=== PATIENT | male | born 1965 | race Caucasian/White ===

== ENCOUNTER → 2017-08-11 | Outpatient (CLI) | payer OTHER ==
--- NOTE | 2017-08-12 07:10 | EEG ---
DATE OF EE08/11/2017 REFERRING PHYSICIAN: Eda Deleon MD DIAGNOSIS: History of herpes encephalitis and seizure, rule out epileptic potential. EEG NUMBER: [id number] HISTORY: The patient is a 51-year-old man with a history of herpes encephalitis in 2016 and had a seizure at that time. This EEG was done to rule out epileptic potential. He is currently taking Trileptal and Protonix. TECHNICAL DESCRIPTION: This digital EEG was recorded by 21 scalp, ear and 2 EKG electrodes and was reviewed in bipolar and referential montages following reformatting 10-20 international electrode placement system. INTERPRETATION: The patient was noted to be in awake and drowsy states during this EEG. Resting awake background rhythm consisted of well-formed posterior dominant rhythm with anterior/posterior gradient comprising of 11 Hz of alpha activity measuring 15-50 microvolts in amplitude, which was symmetric and reactive to eye opening. Attenuation of posterior dominant rhythm was seen during transition into drowsiness. Stage 1 sleep was reviewed and was symmetric bilaterally. Hyperventilation remained unremarkable. Photic stimulation at 3- 30 Hz elicited symmetric photic driving. EKG revealed normal sinus rhythm. No focal, lateralizing or epileptiform abnormalities were seen. No clinical or electrographic seizures were recorded. CONCLUSION: This EEG in awake, drowsy states, stage 1 sleep is within normal limits. [facility]
== END ==
LOC: M SLEEP 08:14
PROVIDERS: ATTEND Psychiatry & Neurology Neurology
DX: R56.9 Unspecified convulsions (principal)

== ENCOUNTER → 2017-08-11 | Outpatient (CLI) | payer OTHER ==
[~2017-08-11] MED LIST: PROHANCE 279.3MG/ML 15ML VIAL (A9576) As Ordered ONE; PROHANCE 279.3MG/ML 5ML VIAL (A9576) As Ordered ONE
--- NOTE | 2017-08-11 13:08 | REP ---
MRI BRAIN WITHOUT AND WITH CONTRAST: HISTORY: Herpes encephalitis. CONTRAST: ProHance 20 mL. Increased signal intensity on T2-weighted images is present in the anterior left temporal lobe. There is dilatation of the overlying cortical sulci and temporal horn of the left lateral ventricle. This represents gliosis and encephalomalacia. There is no intraparenchymal hemorrhage, mass or midline shift. There is no abnormal enhancement. 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 There is no hydrocephalus or extracerebral collection. The sinuses are clear. IMPRESSION: There is gliosis and encephalomalacia in the anterior left temporal lobe. Signed by Vahe Fong MD 08/11/2017 01:33 P
== END ==
LOC: M RAD 10:12
PROVIDERS: ATTEND Psychiatry & Neurology Neurology
DX: B00.9 Herpesviral infection, unspecified (principal)

== ENCOUNTER 2019-10-13 07:59 | Day surgery (SDC) | payer OTHER ==
[~2019-10-13] VITALS: Ht 180.3 cm; Wt 116.3 kg
[~2019-10-13 07:59] MED LIST changes: +OXCA600T8 PO; +PANT40TA3 PO; -PROHANCE 279.3MG/ML 15ML VIAL (A9576) As Ordered ONE; -PROHANCE 279.3MG/ML 5ML VIAL (A9576) As Ordered ONE
[2019-10-13] MEDS ORDERED: NS 1,000 ML IV ONE (09:00)
[2019-10-13] MEDS ORDERED: LIDOCAINE 2% INJ 100 MG/5 ML SDV (FOR ANES.) As Ordered ONE (09:49)
[2019-10-13] MEDS ORDERED: propofoL 200 MG/20 ML VIAL As Ordered ONE (09:49)
--- NOTE | 2019-10-13 09:55 | ROOR ---
Patient Name: Denny Mccrary Procedure Date: 10/13/2019 9:33 AM Date of : 1965 Age: 53 Room: [facility] Gender: Male Note Status: Finalized Procedure: Colonoscopy Indications: Screening in patient at increased risk: Colorectal cancer in father before age 60 Providers: Lazaro THOMAS MD Referring MD: NOMAN CORCORAN MD Requesting Provider: Medicines: Monitored Anesthesia Care Complications: No immediate complications. Procedure: Pre-Anesthesia Assessment: - The heart rate, respiratory rate, oxygen saturations, blood pressure, adequacy of pulmonary ventilation, and response to care were monitored throughout the procedure. The Colonoscope was introduced through the anus and advanced to the terminal ileum, with identification of the appendiceal orifice and IC valve. The colonoscopy was performed without difficulty. The patient tolerated the procedure well. The quality of the bowel preparation was good. Findings: The perianal and digital rectal examinations were normal. A diminutive polyp was found in the distal sigmoid colon. The polyp was sessile. The polyp was removed with a cold snare. Resection and retrieval were complete. A few medium-mouthed diverticula were found in the sigmoid colon. Small Internal Hemorrhoids. The exam was otherwise without abnormality on direct and retroflexion views. Impression: - One diminutive polyp in the distal sigmoid colon, removed with a cold snare. Resected and retrieved. - Minimal diverticulosis in the sigmoid colon. - Small Internal Hemorrhoids. - The examination was otherwise normal on direct and retroflexion views. Recommendation: - Use fiber, for example Citrucel, Fibercon, Konsyl or Metamucil. - Telephone endoscopist for pathology results in 2 weeks. - Repeat colonoscopy in 3 years. Lazaro Thomas MD Lazaro THOMAS MD 10/13/2019 9:55:11 AM Electronically signed by Lazaro THOMAS MD Number of Addenda: 0 Note Initiated On: 10/13/2019 9:33 AM Estimated Blood Loss: Estimated blood loss: none.
[2019-10-13 10:18] VITALS: BP 129/62
== END 2019-10-13 10:22 | disposition home or self-care (01) ==
LOC: M OPP 07:59
PROVIDERS: ATTEND Internal Medicine Gastroenterology
DX: Z12.11 Encounter for screening for malignant neoplasm of colon (principal); Z80.0 Family history of malignant neoplasm of digestive organs; K63.5 Polyp of colon; K57.30 Diverticulosis of large intestine without perforation or abscess without bleeding; K21.9 Gastro-esophageal reflux disease without esophagitis; Z79.899 Other long term (current) drug therapy; Z87.891 Personal history of nicotine dependence

== ENCOUNTER → 2020-07-25 | Outpatient (CLI) | payer OTHER ==
[~2020-07-25] MED LIST changes: +PANT40TA29 PO; -PANT40TA3 PO
--- NOTE | 2020-07-25 15:31 | REP ---
INDICATION: EPIGASTRIC PAIN COMPARISON: None. TECHNIQUE: Real time leon scale ultrasound examination using curved array transducer. FINDINGS: Liver is normal in contour, size, and without focal hepatic lesions identified. Mild hepatosteatosis cannot be excluded. Pancreas is incompletely evaluated due to interposed bowel gas. The gallbladder demonstrate multiple layering gallstones without wall thickening, or pericholecystic fluid. No biliary ductal dilatation is appreciated and the common bile duct measures 4.7 mm diameter. Right kidney is normal in reniform shape without hydronephrosis and measures 12.2 x 6.0 x 5.3 cm. No ascites in the visualized right upper quadrant. IMPRESSION: 1. Cholelithiasis. 2. Mild hepatosteatosis cannot be excluded. No focal hepatic lesion identified. <Electronically signed by Chase Hunt > 07/25/20 [id number]
== END ==
LOC: M RAD 07:07
PROVIDERS: ATTEND Surgery
DX: R10.13 Epigastric pain (principal); K80.20 Calculus of gallbladder without cholecystitis without obstruction

== ENCOUNTER → 2020-08-27 | Outpatient (CLI) | payer OTHER ==
--- NOTE | 2020-08-27 10:04 | REP ---
INDICATION: LUNG SCREENING COMPARISON: None. TECHNIQUE: Axial noncontrast images from the thoracic inlet to the upper abdomen using low-dose lung screening technique (LDCT). FINDINGS: The bilateral lung vee are relatively well aerated and clear. No suspicious nodule or mass lesion is appreciated. No consolidation, effusion, or pneumothorax. Tracheobronchial tree is patent. Limited evaluation of the mediastinum is grossly unremarkable although atherosclerotic changes to the coronary arteries cannot be excluded. IMPRESSION: Lung-RADS category 1. No suspicious nodule or mass lesion. Management recommendations include annual low-dose CT surveillance. <Electronically signed by Chase Hunt > 08/27/20 [id number]
== END ==
LOC: M RAD 08:53
PROVIDERS: ATTEND Internal Medicine Hematology & Oncology
DX: Z12.2 Encounter for screening for malignant neoplasm of respiratory organs (principal)

== ENCOUNTER → 2020-10-04 | Outpatient (CLI) | payer OTHER ==
[~2020-10-04] MED LIST changes: +HYDR-4571 PO
== END ==
LOC: M LABSMTC 09:44
PROVIDERS: ATTEND Anesthesiology
DX: Z20.828 Contact with and (suspected) exposure to other viral communicable diseases (principal)

== ENCOUNTER 2020-10-09 06:13 | Day surgery (SDC) | payer OTHER ==
[~2020-10-09] VITALS: Ht 180.3 cm; Wt 118.3 kg
[~2020-10-09 06:13] MED LIST changes: -HYDR-4571 PO
--- OUTSIDE RECORDS SUMMARY | 2020-10-09 06:18 | CCD ---
Author Author [facility] Organization [facility] Address Unknown Phone Unavailable Care Team Providers Care Treatment Manager Name Role Phone Danelle Lynn MD Unavailable Unavailable Shane, Danelle Tineo MD Unavailable Unavailable Shane, Danelle Tineo MD Unavailable Unavailable Shane, Danelle Tineo MD Unavailable Unavailable Shane, Danelle Tineo MD Unavailable Unavailable Shane, Danelle Tineo MD Unavailable Unavailable Shane, Danelle Tineo MD Unavailable Unavailable Shane, Danelle Tineo MD Unavailable Unavailable Shane, Danelle Tineo MD Unavailable Unavailable Shane, Danelle Tineo MD Unavailable Unavailable Shane, Danelle Tineo MD Unavailable Unavailable Shane, Danelle Tineo MD Unavailable Unavailable Shane, Danelle Tineo MD Unavailable Unavailable Shane, Danelle Tineo MD Unavailable Unavailable Shane, Danelle Tineo MD Unavailable Unavailable Shane, Danelle Tineo MD Unavailable Unavailable Shane, Danelle Tineo MD Unavailable Unavailable Shane, Danelle Tineo MD Unavailable Unavailable Shane, Danelle Tineo MD Unavailable Unavailable Shane, Danelle Tineo MD Unavailable Unavailable Shane, Danelle Tineo MD Unavailable Unavailable Shane, Danelle Tineo MD Unavailable Unavailable Shane, Danelle Tineo MD Unavailable Unavailable Shane, Danelle Tineo MD Unavailable Unavailable Shane, Danelle Tineo MD Unavailable Unavailable Shane, Danelle Tineo MD Unavailable Unavailable Shane, Danelle Tineo MD Unavailable Unavailable Shane, Danelle Tineo MD Unavailable Unavailable Shane, Danelle Tineo MD Unavailable Unavailable Shane, Danelle Tineo MD Unavailable Unavailable Shane, Danelle Tineo MD Unavailable Unavailable Shane, Danelle Tineo MD Unavailable Unavailable Shane, Danelle Tineo MD Unavailable Unavailable Shane, Danelle Tineo MD Unavailable Unavailable Shane, Danelle Tineo MD Unavailable Unavailable Shane, Danelle Tineo MD Unavailable Unavailable Shane, Danelle Tineo MD Unavailable Unavailable Shane, Danelle Tineo MD Unavailable Unavailable Shane, Danelle Tineo MD Unavailable Unavailable Shane, Danelle Tnieo MD Unavailable Unavailable Shane, Danelle Tineo MD Unavailable Unavailable Shane, Danelle Tineo MD Unavailable Unavailable Shane, Danelle Tineo MD Unavailable Unavailable Shane, Danelle Tineo MD Unavailable Unavailable Shane, Danelle Tineo MD Unavailable Unavailable Shane, Danelle Tineo MD Unavailable Unavailable Shane, Danelle Tineo MD Unavailable Unavailable Shane, Danelle Tineo MD Unavailable Unavailable Shane, Danelle Tineo MD Unavailable Unavailable Shane, Danelle Tineo MD Unavailable Unavailable Shane, Danelle Tineo MD Unavailable Unavailable Shane, Danelle Tineo MD Unavailable Unavailable Shane, Danelle Tineo MD Unavailable Unavailable Shane, Danelle Tineo MD Unavailable Unavailable Shane, Danelle Tineo MD Unavailable Unavailable Shane, Danelle Tineo MD Unavailable Unavailable Shane, Danelle Tineo MD Unavailable Unavailable Shane, Danelle Tineo MD Unavailable Unavailable Shane, Danelle Tineo MD Unavailable Unavailable Shane, Danelle Tineo MD Unavailable Unavailable Shane, Danelle Tineo MD Unavailable Unavailable Shane, Danelle Tineo MD Unavailable Unavailable Shane, Danelle Tineo MD Unavailable Unavailable Shane, Danelle Tineo MD Unavailable Unavailable Shane, Danelle Tineo MD Unavailable Unavailable Shane, Danelle Tineo MD Unavailable Unavailable Shane, Danelle Tineo MD Unavailable Unavailable Shane, Danelle Tineo MD Unavailable Unavailable Shane, Danelle Tineo MD Unavailable Unavailable Shane, Danelle Tineo MD Unavailable Unavailable Shane, Danelle Tineo MD Unavailable Unavailable Shane, Danelle Tineo MD Unavailable Unavailable Shane, Danelle Tineo MD Unavailable Unavailable Shane, Danelle Tineo MD Unavailable Unavailable Shane, Danelle Tineo MD Unavailable Unavailable Shane, Danelle Tineo MD Unavailable Unavailable Shane, Danelle Tineo MD Unavailable Unavailable Shane, Danelle Tineo MD Unavailable Unavailable Shane, Danelle Tineo MD Unavailable Unavailable Shane, Danelle Tineo MD Unavailable Unavailable Shane, Danelle Tineo MD Unavailable Unavailable Shane, Danelle Tineo MD Unavailable Unavailable Shane, Danelle Tineo MD Unavailable Unavailable Shane, Danelle Tineo MD Unavailable Unavailable Shane, Danelle Tineo MD Unavailable Unavailable Shane, Danelle Tineo MD Unavailable Unavailable Shane, Danelle Tineo MD Unavailable Unavailable Shane, Danelle Tineo MD Unavailable Unavailable Shane, Danelle Tineo MD Unavailable Unavailable Shane, Danelle Tineo MD Unavailable Unavailable Shane, Danelle Tineo MD Unavailable Unavailable Shane, Danelle Tineo MD Unavailable Unavailable Shane, Danelle Tineo MD Unavailable Unavailable Shane, Danelle Tineo MD Unavailable Unavailable Shane, Danelle Tineo MD Unavailable Unavailable Shane, Danelle Tineo MD Unavailable Unavailable Shane, Danelle Tineo MD Unavailable Unavailable Shane, Danelle Tineo MD Unavailable Unavailable Shane, Danelle Tineo MD Unavailable Unavailable Shane, Danelle Tineo MD Unavailable Unavailable Shane, Danelle Tineo MD Unavailable Unavailable Shane, Danelle Tineo MD Unavailable Unavailable Shane, Danelle Tineo MD Unavailable Unavailable Shane, Danelle Tineo MD Unavailable Unavailable Shane, Danelle Tineo MD Unavailable Unavailable Shane, Danelle Tineo MD Unavailable Unavailable Shane, Danelle Tineo MD Unavailable Unavailable Shane, Danelle Tineo MD Unavailable Unavailable Shane, Danelle Tineo MD Unavailable Unavailable Shane, Danelle Tineo MD Unavailable Unavailable Shane, Danelle Tineo MD Unavailable Unavailable Shane, Danelle Tineo MD Unavailable Unavailable Shane, Danelle Tineo MD Unavailable Unavailable Shane, Danelle Tineo MD Unavailable Unavailable Shane, Danelle Tineo MD Unavailable Unavailable Shane, Danelle Tineo MD Unavailable Unavailable Shane, Danelle Tineo MD Unavailable Unavailable Shane, Danelle Tineo MD Unavailable Unavailable Shane, Danelle Tineo MD Unavailable Unavailable Shnae, Danelle Tineo MD Unavailable Unavailable Shane, Danelle Tineo MD Unavailable Unavailable Shane, Danelle Tineo MD Unavailable Unavailable Shane, Danelle Tineo MD Unavailable Unavailable Shane, Danelle Tineo MD Unavailable Unavailable Shane, Danelle Tineo MD Unavailable Unavailable Shane, Danelle Tineo MD Unavailable Unavailable Shane, Danelle Tineo MD Unavailable Unavailable Shane, Danelle Tineo MD Unavailable Unavailable Shane, Danelle Tineo MD Unavailable Unavailable Shane, Danelle Tineo MD Unavailable Unavailable Shane, Danelle Tineo MD Unavailable Unavailable Shane, Danelle Tineo MD Unavailable Unavailable Shane, Danelle Tineo MD Unavailable Unavailable Shane, Danelle Tineo MD Unavailable Unavailable Shane, Danelle Tineo MD Unavailable Unavailable Shane, Danelle Tineo MD Unavailable Unavailable Shane, Danelle Tineo MD Unavailable Unavailable Shane, Danelle Tineo MD Unavailable Unavailable Shane, Danelle Tineo MD Unavailable Unavailable Shane, Danelle Tineo MD Unavailable Unavailable Shane, Danelle Tineo MD Unavailable Unavailable Shane, Danelle Tineo MD Unavailable Unavailable Shane, Danelle Tineo MD Unavailable Unavailable Shane, Danelle Tineo MD Unavailable Unavailable Shane, Danelle Tineo MD Unavailable Unavailable Shane, Danelle Tineo MD Unavailable Unavailable Shane, Danelle Tineo MD Unavailable Unavailable Shane, Danelle Tineo MD Unavailable Unavailable Shane, Danelle Tineo MD Unavailable Unavailable Shane, Danelle Tineo MD Unavailable Unavailable Shane, Danelle Tineo MD Unavailable Unavailable Shane, Danelle Tineo MD Unavailable Unavailable Leticia Jean Baptiste MD Unavailable Unavailable Leticia Jean Baptiste MD Unavailable Unavailable Leticia Jean Baptiste MD Unavailable Unavailable Leticia Jean Baptiste MD Unavailable Unavailable Leticia Jean Baptiste MD Unavailable Unavailable Leticia Jean Baptiste MD Unavailable Unavailable Leticia Jean Baptiste MD Unavailable Unavailable Leticia Jean Baptiste MD Unavailable Unavailable Leticia Jean Baptiste MD Unavailable Unavailable Leticia Jean Baptiste MD Unavailable Unavailable Leticia Jean Baptiste MD Unavailable Unavailable Leticia Jean Baptiste MD Unavailable Unavailable Leticia Jean Baptiste MD Unavailable Unavailable Leticia Jean Baptiste MD Unavailable Unavailable Leticia Jean Baptiste MD Unavailable Unavailable Leticia Jean Baptiste MD Unavailable Unavailable Leticia Jean Baptiste MD Unavailable Unavailable Leticia Jean Baptiste MD Unavailable Unavailable Leticia Jean Baptiste MD Unavailable Unavailable Leticia Jean Baptiste MD Unavailable Unavailable Leticia Jean Baptiste MD Unavailable Unavailable Leticia Jean Baptiste MD Unavailable Unavailable Leticia Jean Baptiste MD Unavailable Unavailable Leticia Jean Baptiste MD Unavailable Unavailable Leticia Jean Baptiste MD Unavailable Unavailable Leticia Jean Baptiste MD Unavailable Unavailable Leticia Jean Baptiste MD Unavailable Unavailable Leticia Jean Baptiste MD Unavailable Unavailable Leticia Jean Baptiste MD Unavailable Unavailable Leticia Jean Baptiste MD Unavailable Unavailable Leticia Jean Baptiste MD Unavailable Unavailable Markel O Eduarah Unavailable Unavailable Leticia Jean Baptiste MD Unavailable Unavailable Leticia Jean Baptiste MD Unavailable Unavailable Leticia Jean Baptiste MD Unavailable Unavailable Leticia Jean Baptiste MD Unavailable Unavailable Leticia Jean Baptiste MD Unavailable Unavailable Leticia Jean Baptiste MD Unavailable Unavailable Leticia Jean Baptiste MD Unavailable Unavailable Leticia Jean Baptiste MD Unavailable Unavailable Leticia Jean Baptiste MD Unavailable Unavailable Leticia Jean Baptiste MD Unavailable Unavailable Leticia Jean Baptiste MD Unavailable Unavailable Leticia Jean Baptiste MD Unavailable Unavailable Leticia Jean Baptiste MD Unavailable Unavailable Leticia Jean Baptiste MD Unavailable Unavailable Leticia Jean Baptiste MD Unavailable Unavailable Leticia Jean Baptiste MD Unavailable Unavailable Leticia Jean Baptiste MD Unavailable Unavailable Leticia Jean Baptiste MD Unavailable Unavailable Leticia Jean Baptiste MD Unavailable Unavailable Leticia Jean Baptiste MD Unavailable Unavailable Leticia Jean Baptiste MD Unavailable Unavailable Leticia Jean Baptiste MD Unavailable Unavailable Leticia Jean Baptiste MD Unavailable Unavailable Leticia Jean Baptiste MD Unavailable Unavailable Leticia Jean Baptiste MD Unavailable Unavailable Leticia Jean Baptiste MD Unavailable Unavailable Leticia Jean Baptiste MD Unavailable Unavailable Leticia Jean Baptiste MD Unavailable Unavailable Leticia Jean Baptiste MD Unavailable Unavailable Leticia Jean Baptiste MD Unavailable Unavailable Leticia Jean Baptiste MD Unavailable Unavailable Leticia Jean Baptiste MD Unavailable Unavailable Leticia Jean Baptiste MD Unavailable Unavailable Leticia Jean Baptiste MD Unavailable Unavailable Leticia Jean Baptiste MD Unavailable Unavailable Leticia Jean Baptiste MD Unavailable Unavailable Leticia Jean Baptiste MD Unavailable Unavailable Markel, O Eduarah MD Unavailable Unavailable Markel, O Samah MD Unavailable Unavailable Markel, O Samah MD Unavailable Unavailable Markel, O Samah MD Unavailable Unavailable Markel, O Samah MD Unavailable Unavailable Markel, O Samah MD Unavailable Unavailable Markel, O Samah MD Unavailable Unavailable Re-disclosure Warning The records that you are about to access may contain information from federally-assisted alcohol or drug abuse programs. If such information is present, then the following federally mandated warning applies: This information has been disclosed to you from records protected by federal confidentiality rules (42 CFR part 2). The federal rules prohibit you from making any further disclosure of this information unless further disclosure is expressly permitted by the written consent of the person to whom it pertains or as otherwise permitted by 42 CFR part 2. A general authorization for the release of medical or other information is NOT sufficient for this purpose. The Federal rules restrict any use of the information to criminally investigate or prosecute any alcohol or drug abuse patient.The records that you are about to access may contain highly sensitive health information, the redisclosure of which is protected by Article 27-F of the [facility] Public Health law. If you continue you may have access to information: Regarding HIV / AIDS; Provided by facilities licensed or operated by the [facility] Office of Mental Health; or Provided by the [facility] Office for People With Developmental Disabilities. If such information is present, then the following [facility] mandated warning applies: This information has been disclosed to you from confidential records which are protected by state law. State law prohibits you from making any further disclosure of this information without the specific written consent of the person to whom it pertains, or as otherwise permitted by law. Any unauthorized further disclosure in violation of state law may result in a fine or retirement sentence or both. A general authorization for the release of medical or other information is NOT sufficient authorization for further disc losure. Encounters Encounter Providers Location Date Indications Data Source(s ) Outpatient Attender: Noman Lynn MDConsultant: Noman wilkes MD 07/15/2020 08:42:00 AM EST - 07/15/2020 09:42:00 AM [facility] Outpatient Attender: Noman LEONGonsultant: Noman wilkes MD 06/30/2020 08:11:00 AM EDT - 06/30/2020 09:11:00 AM EDT [facility] Outpatient<td ID="encounterTypeDescripti onID0">WRITE-IN (SAME DAY)</td><td>Noman Lynn MD</td><td>[facility]</td><td>06/27/2020</td><td>4:04PM</td><td>4:40PM</td><td><content ID="encounterDiagnosisID0-0">Cholelithiasis</content>, <content ID="encounterDiagnosisID0-1">Thrombocytopenia</content>, <content ID="encounterDiagnosisID0-2">Obesity</content></td> Attender: Noman Lynn MD [facility] 06/27/2020 04:04:00 PM EDT - 06/27/2020 04:40:00 PM EDT ObesityCholelithiasisObesityCholelithiasisThrombocytopeniaThrombocytopenia [facility] ([facility]) Obesity Cholelithiasis Obesity Cholelithiasis Thrombocytopenia Thrombocytopenia Outpatient Attender: Berenice Jean Baptiste MD Main office - [facility] 06/21/2020 10:45:00 AM EDT [facility]) Outpatient<td ID="encounterTypeDescripti onID1">STANDARD OV</td><td>Noman Lynn MD</td><td>[facility]</td><td>05/18/2020</td><td>7:57AM</td><td>8:35AM</td><td><content ID="encounterDiagnosisID1-0">Heartburn</content>, <content ID="encounterDiagnosisID1-1">Thrombocytopenia</content>, <content ID="encounterDiagnosisID1-2">Organic Sleep Apnea Obstructive Adult</content>, <content ID="encounterDiagnosisID1-3">Assessment of Dry Eyes</content>, <content ID="encounterDiagnosisID1-4">Acrochordon</content>, <content ID="encounterDiagnosisID1-5">Hypoglycemia</content></td> Attender: Noman Lynn MD [facility] 05/18/2020 07:57:00 AM EDT - 05/18/2020 08:35:00 AM EDT HypoglycemiaAcrochordonAssessment of Dry EyesHypoglycemiaAcrochordonAssessment of Dry EyesHypoglycemiaAcrochordonAssessment of Dry EyesOrganic Sleep Apnea Obstructive AdultThrombocytopeniaOrganic Sleep Apnea Obstructive AdultThrombocytopenia Organic Sleep Apnea Obstructive AdultThrombocytopeniaHeartburnHeartburnOhiohealthrtGreene [facility] ([facility] Hypoglycemia Acrochordon Assessment of Dry Eyes Hypoglycemia Acrochordon Assessment of Dry Eyes Hypoglycemia Acrochordon Assessment of Dry Eyes Organic Sleep Apnea Obstructive Adult Thrombocytopenia Organic Sleep Apnea Obstructive Adult Thrombocytopenia Organic Sleep Apnea Obstructive Adult Thrombocytopenia Heartburn Heartburn Heartburn Outpatient Attender: Noman Lynn MDConsultant: Noman wilkes MD 04/21/2020 08:37:00 AM EDT - 04/21/2020 09:37:00 AM EDT [facility] Outpatient Attender: Berenice Jean Baptiste MD [facility] office [facility] 03/20/2020 08:30:00 AM EDT [facility] Outpatient<td ID="encounterTypeDescripti onID2">STANDARD OV</td><td>Noman Lynn MD</td><td>[facility]</td><td>03/02/2020</td><td>7:54AM</td><td>8:27AM</td><td><content ID="encounterDiagnosisID2-0">Dermatomycosis Tinea Versicolor</content>, <content ID="encounterDiagnosisID2-1">Nonepileptic Seizures</content>, <content ID="encounterDiagnosisID2-2">Heartburn</content></td> Attender: Noman Lynn MD [facility] 03/02/2020 07:54:00 AM EDT - 03/02/2020 08:27:00 AM EDT Dermatomycosis Tinea VersicolorDermatomy cosis Tinea VersicolorDermatomycosis Tinea VersicolorDermatomycosis Tinea VersicolorNonepileptic SeizuresNonepileptic SeizuresNonepileptic SeizuresNonepileptic SeizuresHeartburnHeartburnHeartburnHeartburn [facility] ([facility]) Dermatomycosis 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 Heartburn Heartburn Heartburn Heartburn Outpatient<td ID="encounterTypeDescripti onID3">ANNUAL PHYSICAL EXAM</td><td>[facility] Lynn MD</td><[facility]</td><td>12/02/2019</td><td>8:08AM</td><td>9:22AM</td><td><content ID="encounterDiagnosisID3-0">Nonepileptic Seizures</content>, <content ID="encounterDiagnosisID3-1">Heartburn</content>, <content ID="encounterDiagnosisID3-2">Large Intestine Neoplasm, Benign - Hyperplastic Polyp</content>, <content ID="encounterDiagnosisID3-3">Obesity</content>, <content ID="encounterDiagnosisID3-4">Routine History & Physical Adult with Abnormal Findings</content>, <content ID="encounterDiagnosisID3- 5">Hyperlipidemia</content>, <content ID="encounterDiagnosisID3-6">Gerd</content>, <content ID="encounterDiagnosisID3- 7">Organic Sleep Apnea Obstructive Adult</content>, <content ID="encounterDiagnosisID3-8">Thrombocytopenia</content></td> Attender: [facility] 12/02/2019 08:08:00 AM EDT - 12/02/2019 09:22:00 AM EDT ThrombocytopeniaOrganic Sleep Apnea Obst ructive AdultRoutine History & Physical Adult with Abnormal FindingsObesityLarge Intestine Neoplasm, Benign - Hyperplastic PolypNonepileptic SeizuresThrombocytopeniaOrganic Sleep Apnea Obstructive AdultRoutine History & Physical Adult with Abnormal FindingsObesityLarge Intestine Neoplasm, Benign - Hyperplastic PolypNonepileptic SeizuresThrombocytopeniaOrganic Sleep Apnea Obstructive AdultRoutine History & Physical Adult with Abnormal FindingsObesityLarge Intestine Neoplasm, Benign - Hyperplastic PolypNonepileptic SeizuresThrombocytopeniaOrganic Sleep Apnea Obstructive AdultRoutine History & Physical Adult with Abnormal FindingsObesityLarge Intestine Neoplasm, Benign - Hyperplastic PolypNonepileptic SeizuresThrombocytopeniaOrganic Sleep Apnea Obstructive AdultRoutine History & Physical Adult with Abnormal FindingsObesityLarge Intestine Neoplasm, Benign - Hyperplastic PolypNonepileptic SeizuresThrombocytopeniaRoutine History & Physical Adult with Abnormal FindingsObesityLarge Intestine Neoplasm, Benign - Hyperplastic PolypNonepileptic SeizuresThrombocytopeniaRoutine History & Physical Adult with Abnormal FindingsObesityLarge Intestine Neoplasm, Benign - Hyperplastic PolypNonepileptic SeizuresGerdGerdGerdGerdGerdGerdGerdOrganic Sleep Apnea Obstructive AdultOrganic Sleep Apnea Obstructive AdultHeartburnHeartburnHeartburnHeartburnHeartburnHeartburnHeartburnHyperlipidem iaHyperlipidemiaHyperlipidemiaHyperlipidemiaHyperlipidemiaHyperlipidemia Hyperlipidemia [facility] ([facility]) Thrombocytopenia Organic Sleep Apnea Obstructive Adult Routine History & Physical Adult with Ab normal Findings Obesity Large Intestine Neoplasm, 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 Thrombocytopenia Organic Sleep Apnea Obstructive Adult Routine History & Physical Adult with Ab normal Findings Obesity Large Intestine Neoplasm, 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 Thrombocytopenia Organic Sleep Apnea Obstructive Adult Routine History & Physical Adult with Ab normal Findings Obesity Large Intestine Neoplasm, 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 Thrombocytopenia Organic Sleep Apnea Obstructive Adult Routine History & Physical Adult with Ab normal Findings Obesity Large Intestine Neoplasm, 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 Thrombocytopenia Organic Sleep Apnea Obstructive Adult Routine History & Physical Adult with Ab normal Findings Obesity Large Intestine Neoplasm, 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 Thrombocytopenia Routine History & Physical Adult with Ab normal Findings Obesity Large Intestine Neoplasm, 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 Thrombocytopenia Routine History & Physical Adult with Ab normal Findings Obesity Large Intestine Neoplasm, 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 Gerd Gerd Gerd Gerd Gerd Gerd Gerd 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 Adult Heartburn Heartburn Heartburn Heartburn Heartburn Heartburn Heartburn Hyperlipidemia Hyperlipidemia Hyperlipidemia Hyperlipidemia Hyperlipidemia Hyperlipidemia Hyperlipidemia Outpatient<td ID="encounterTypeDescripti onID4">RX UPDATE</td><td>Noman Lynn MD</td><td>[facility]</td><td>11/07/2019</td><td>08/26/2019 2:51PM</td><td>08/26/2019 11:59PM</td><td></td> Attender: Noman Lynn MD [facility] 11/07/2019 02:51:00 PM [facility] - 08/26/2019 11:59:00 PM [facility] ([facility]) Outpatient Attender: Noman Lynn MDConsultant: Noman wilkes MD 08/26/2019 09:44:00 AM EST - 08/26/2019 10:44:00 AM [facility] Outpatient<td ID="encounterTypeDescripti onID5">STANDARD OV</td><td>Noman Lynn MD</td><td>[facility]</td><td>08/26/2019</td><td>8:25AM</td><td>9:34AM</td><td><content ID="encounterDiagnosisID5-0">Tmj Sounds on Opening / Closing Jaw</content>, <content ID="encounterDiagnosisID5-1">Temporomandibular Joint Disorder Right</content>, <content ID="encounterDiagnosisID5-2">Heartburn</content>, <content ID="encounterDiagnosisID5-3">Obesity</content>, <content ID="encounterDiagnosisID5-4">Organic Sleep Apnea Obstructive</content></td> Attender: Noman Lynn MD [facility] 08/26/2019 08:25:00 AM EST - 08/26/2019 09:34:00 AM EST Organic Sleep Apnea ObstructiveOrganic S leep Apnea ObstructiveOrganic Sleep Apnea ObstructiveOrganic Sleep Apnea ObstructiveOrganic Sleep Apnea ObstructiveObesityTemporomandibular Joint Disorder RightTmj Sounds on Opening / Closing JawObesityTemporomandibular Joint Disorder RightTmj Sounds on Opening / Closing JawObesityTemporomandibular Joint Disorder RightTmj Sounds on Opening / Closing JawObesityTemporomandibular Joint Disorder RightTmj Sounds on Opening / Closing JawObesityTemporomandibular Joint Disorder RightTmj Sounds on Opening / Closing JawObesityTemporomandibular Joint Disorder RightTmj Sounds on Opening / Closing JawObesityTemporomandibular Joint Disorder RightTmj Sounds on Opening / Closing JawObesityTemporomandibular Joint Disorder RightTmj Sounds on Opening / Closing JawOrganic Sleep Apnea ObstructiveOrganic Sleep Apnea ObstructiveOrganic Sleep Apnea ObstructiveHeartburnHeartburnHeartburnHeartbu rnHeartburnHeartburnHeartburnHeartGreene County Hospital ([facility] 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 Obesity Temporomandibular Joint Disorder Right Tmj Sounds on Opening / Closing Jaw Obesity Temporomandibular Joint Disorder Right Tmj Sounds on Opening / Closing Jaw Obesity Temporomandibular Joint Disorder Right Tmj Sounds on Opening / Closing Jaw Obesity Temporomandibular Joint Disorder Right Tmj Sounds on Opening / Closing Jaw Obesity Temporomandibular Joint Disorder Right Tmj Sounds on Opening / Closing Jaw Obesity Temporomandibular Joint Disorder Right Tmj Sounds on Opening / Closing Jaw Obesity Temporomandibular Joint Disorder Right Tmj Sounds on Opening / Closing Jaw Obesity Temporomandibular Joint Disorder Right Tmj Sounds on Opening / Closing Jaw Organic Sleep 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 Obstructive Heartburn Heartburn Heartburn Heartburn Heartburn Heartburn Heartburn Heartburn Outpatient Attender: Noman Lynn MDConsultant: Noman wilkes MD 08/16/2019 02:52:00 PM EST - 08/16/2019 03:52:00 PM [facility] Outpatient<td ID="encounterTypeDescripti onID6">STANDARD OV</td><td>Noman Lynn MD</td><td>[facility]</td><td>08/16/2019</td><td>2:14PM</td><td>2:44PM</td><td><content ID="encounterDiagnosisID6-0">Organic Sleep Apnea Obstructive</content>, <content ID="encounterDiagnosisID6-1">Lymphadenopathy</content>, <content ID="encounterDiagnosisID6-2">Assessment of Ears Feel Pressured</content></td> Attender: Noman Lynn MD [facility] 08/16/2019 02:14:00 PM EST - 08/16/2019 02:44:00 PM EST Organic Sleep Apnea ObstructiveOrganic S leep Apnea ObstructiveOrganic Sleep Apnea ObstructiveOrganic Sleep Apnea ObstructiveOrganic Sleep Apnea ObstructiveAssessment of Ears Feel PressuredLymphadenopathyAssessment of Ears Feel Pressured LymphadenopathyAssessment of Ears Feel PressuredLymphadenopathyAssessment of Ears Feel PressuredLymphadenopathyAssessment of Ears Feel PressuredLymphadenopathyAssessment of Ears Feel PressuredLymphade nopathyAssessment of Ears Feel PressuredLymphadenopathyAssessment of Ears Feel PressuredLymphadenopathyAssessment of Ears Feel PressuredLymphadenopathyOrganic Sleep Apnea ObstructiveOrganic Sleep Apnea ObstructiveOrganic Sleep Apnea ObstructiveOrganic Sleep Apnea Obstructive [place] ([facility]) 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 Assessment of Ears Feel Pressured Lymphadenopathy Assessment of Ears Feel Pressured Lymphadenopathy Assessment of Ears Feel Pressured Lymphadenopathy Assessment of Ears Feel Pressured Lymphadenopathy Assessment of Ears Feel Pressured Lymphadenopathy Assessment of Ears Feel Pressured Lymphadenopathy Assessment of Ears Feel Pressured Lymphadenopathy Assessment of Ears Feel Pressured Lymphadenopathy Assessment of Ears Feel Pressured Lymphadenopathy Organic Sleep 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 See also Td (adult). It is not adsorbed. 08/26/2019 09:28:00 AM EST completed Td 1 08/26/2019 Complete (Refused - Patient objection) [facility] ([facility]) SHINGRIX 08/26/2019 09:28:00 AM EST completed SHINGRIX 1 08/26/20 19 Complete (Refused - Patient objection) [facility] ([facility]) This CVX code allows reporting of a vacc ination when formulation is unknown (for example, when recording a Influenza vaccination when noted on a vaccination card) 08/26/2019 09:28:00 AM EST completed Influenza,NOS 3 08/26/2019 Complete (Refused - Patient objection) [facility] ([facility]) Medications Medication Brand Name Start Date Product Form Dose Route Admi nistrative Instructions Pharmacy Instructions Status Indications Reaction Description Data Source(s) pantoprazole 40 MG Delayed Release Oral Tablet Pantoprazole Sodium 40 MG Oral Tablet Delayed Release Pantoprazole Sodium 40 MG Oral Tablet Delayed Release 05/18/2020 12:00:00 AM EDT active pantoprazole 40 MG Delayed Release Oral Tablet [facility]) 300 mg 03/20/2020 12:00:00 AM EDT tablet 91 TAKE 2 TABLETS IN MORNING & 1 & 1/2 AT NIGHT FOR 14DAY, THEN 1 & 1/2 TABLETS 2X/DAY FOR 14DAY, THEN 1 TABLET IN MORNING & 1 & 1/2 AT NIGHT FOR 14DAY, THEN 1 TWICE A DAY FOR 14DAY THEN 1 TABLET A DAY FOR 14DAY TAKE 2 TABLETS IN MORNING & 1 & 1/2 AT N IGHT FOR 14DAY, THEN 1 & 1/2 TABLETS 2X/DAY FOR 14DAY, THEN 1 TABLET IN MORNING & 1 & 1/2 AT NIGHT FOR 14DAY, THEN 1 TWICE A DAY FOR 14DAY THEN 1 TABLET A DAY FOR 14DAY SOLD: 03/20/2020 [facility] 300 mg 03/20/2020 12:00:00 AM EDT tablet 77 TAKE 2 TABLETS IN MORNING & 1 & 1/2 AT NIGHT FOR 14DAY, THEN 1 & 1/2 TABLETS 2X/DAY FOR 14DAY, THEN 1 TABLET IN MORNING & 1 & 1/2 AT NIGHT FOR 14DAY, THEN 1 TWICE A DAY FOR 14DAY THEN 1 TABLET A DAY FOR 14DAY TAKE 2 TABLETS IN MORNING & 1 & 1/2 AT N IGHT FOR 14DAY, THEN 1 & 1/2 TABLETS 2X/DAY FOR 14DAY, THEN 1 TABLET IN MORNING & 1 & 1/2 AT NIGHT FOR 14DAY, THEN 1 TWICE A DAY FOR 14DAY THEN 1 TABLET A DAY FOR 14DAY SOLD: 04/26/2020 [facility] oxcarbazepine 300 MG Oral Tablet Oxcarbazepine 03/20/2020 12:00:00 AM EDT completed [facility] ([facility], ) pantoprazole 40 MG Delayed Release Oral Tablet Pantoprazole Sodium 40 MG Oral Tablet Delayed Release Pantoprazole Sodium 40 MG Oral Tablet Delayed Release 03/02/2020 12:00:00 AM EDT aborted pantoprazole 40 MG Delayed Release Oral Tablet G[facility]RIELA ([facility]) oxcarbazepine 600 MG Oral Tablet OXcarbazepine 600 MG Oral Tablet OXcarbazepine 600 MG Oral Tablet 03/02/2020 12:00:00 AM EDT aborted oxcarbazepine 600 MG Oral Tablet GABRIELA ([facility]) Magnesium 400 MG Oral Capsule Magnesium 400 MG Oral Capsule 12/02/2019 12:00:00 AM EDT 1 aborted Magnesium [facility] ([facility]) oxcarbazepine 600 MG Oral Tablet OXcarbazepine 600 MG Oral Tablet OXcarbazepine 600 MG Oral Tablet 12/02/2019 12:00:00 AM EDT aborted oxcarbazepine 600 MG Oral Tablet GABRIELA ([facility]) pantoprazole 40 MG Delayed Release Oral Tablet Pantoprazole Sodium 40 MG Oral Tablet Delayed Release Pantoprazole Sodium 40 MG Oral Tablet Delayed Release 11/07/2019 12:00:00 AM EST aborted pantoprazole 40 MG Delayed Release Oral Tablet GABRIELA ([facility]) 875 mg 08/17/2019 12:00:00 AM EST tablet 14 TAKE ONE TABLET BY MOUTH TWICE A DAY FOR 1 WEEK TAKE ONE TABLET BY MOUTH TWICE A DAY FOR 1 WEEK SOLD: 2018 [facility] Amoxicillin 875 MG Oral Tablet Amoxicillin 875 MG Oral Table t 08/17/2019 12:00:00 AM EST aborted amoxici llin 875 MG Oral Tablet GABRIELA ([facility]) oxcarbazepine 600 MG Oral Tablet OXcarbazepine 600 MG Oral Tablet OXcarbazepine 600 MG Oral Tablet 08/03/2019 12:00:00 AM EST aborted oxcarbazepine 600 MG Oral Tablet GABRIELA ([facility]) pantoprazole 40 MG Delayed Release Oral Tablet Pantoprazole Sodium 40 MG Oral Tablet Delayed Release Pantoprazole Sodium 40 MG Oral Tablet Delayed Release 05/20/2019 12:00:00 AM EDT aborted pantoprazole 40 MG Delayed Release Oral Tablet GABRIELA ([facility]) Insurance Providers Payer name Policy type / Coverage type Policy ID Covered republican ID Covered republican's relationship to martinez Policy Martinez Plan Information UMR [facility] [id number] [place] [id number] [facility] [id number] [place] [id number] UMR O [id number] S [id number] UMR -O/P [id number] 19 [id number] [facility] [id number] [place] [id number] [employer] [place] Individual Policy [id number] Family Dependent Demi Valentino [id number] [employer] [place] Individual Policy [id number] Family Dependent Demi Valentino [id number] [employer] [place] Individual Policy [id number] Family Dependent Demi Valentino [id number] [employer] [place] Individual Policy [id number] Family Dependent Demi Valentino [id number] [employer] [place] Individual Policy [id number] Family Dependent Demi Valentino [id number] [employer] [place] Individual Policy [id number] Family Dependent Demi Valentino [id number] [employer] [place] Individual Policy [id number] Family Dependent Demi Valentino [id number] [facility] [id number] [place] [id number] [employer] [place] Individual Policy [id number] Family Dependent Demi Valentino [id number] [employer] [place] Individual Policy [id number] Family Dependent Demi Valentino [id number] [employer] [place] Individual Policy [id number] Family Dependent Demi Valentino [id number] [employer] [place] Individual Policy [id number] Family Dependent Demi Valentino [id number] [employer] [place] Individual Policy [id number] Family Dependent Demi Valentino [id number] [employer] [place] Individual Policy [id number] Family Dependent Demi Valentino [id number] R U [id number] Spouse [id number] [employer] [place] Individual Policy [id number] Family Dependent Demi Valentino [id number] [employer] U [id number] Spouse [id number] [employer] Individual Policy 0 Family Dependent Angelo Valentino 0 [employer] [id number] [place]2 [id number] [employer] -O/P [id number] 18 [id number] [employer] Individual Policy 0 Family Dependent Angelo Valentino 0 [employer] [id number] SP [id number] [employer] U [id number] Spouse [id number] [employer] PPO O [id number] P [id number] [employer] PPO O [id number] S [id number] CIGNA/MVP/CONN GEN/PREFE O [id number] S [id number] [employer]-O/P [id number] 18 [id number] [employer] [id number] [employer] [id number] Problems, Conditions, and Diagnoses Code Display Name Description Problem Type Effective Dates Data Source(s) 571709576 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 Problem 03/20/2020 12:00:00 AM EDT [facility] ([facility], ) 37074436 Seizure Seizure Problem 03/20/2020 12:00:00 AM ED T [facility] ([facility], ) 111.0 Dermatomycosis Tinea Versicolor Dermatomycosis Tinea V ersicolor Problem 03/02/2020 12:00:00 AM EDT G[facility]ELA ([facility]) 111.0 Dermatomycosis Tinea Versicolor Dermatomycosis Tinea V ersicolor Problem 03/02/2020 12:00:00 AM EDT [place]ELA ([facility]) 111.0 Dermatomycosis Tinea Versicolor Dermatomycosis Tinea V ersicolor Problem 03/02/2020 12:00:00 AM EDT [place]ELA ([facility]) 111.0 Dermatomycosis Tinea Versicolor Dermatomycosis Tinea V ersicolor Problem 03/02/2020 12:00:00 AM EDT G[place]ELA ([facility]) 049.9 Unspecified viral encephalitis Unspecified viral encep halitis Problem 12/02/2019 12:00:00 AM EDT [place]ELA ([facility]) 287.5 Thrombocytopenia Thrombocytopenia Problem 12/02/2019 12 :00:00 AM EDT G[place]ELA ([facility]) 327.23 Organic Sleep Apnea Obstructive Adult Or ganic Sleep Apnea Obstructive Adult Problem 12/02/2019 12:00:00 AM EDT GABRIELA ([facility]) 780.39 Nonepileptic Seizures Nonepileptic Seizures Finding 12/02/2019 12:00:00 AM EDT G[place]RIELA ([facility]) [id number] Large prostate (finding) Prostate Enlargement Finding 12/02/2019 12:00:00 AM EDT GABRIELA [facility]) 65128943 Large Intestine Neoplasm, Benign - Hyper plastic Polyp Large Intestine Neoplasm, Benign - Hyperplastic Polyp Problem 12/02/2019 12:00:00 AM EDT G[facility]RIELA [facility]) 049.9 Unspecified viral encephalitis Unspecified viral encep halitis Problem 12/02/2019 12:00:00 AM EDT GABRIELA ([facility]) 287.5 Thrombocytopenia Thrombocytopenia Problem 12/02/2019 12 :00:00 AM EDT G[place]ELA ([facility]) 327.23 Organic Sleep Apnea Obstructive Adult Or ganic Sleep Apnea Obstructive Adult Problem 12/02/2019 12:00:00 AM EDT G[facility]ELA ([facility]) 780.39 Nonepileptic Seizures Nonepileptic Seizures Finding 12/02/2019 12:00:00 AM EDT GABRIELA [facility]) [id number] Large prostate (finding) Prostate Enlargement Finding 12/02/2019 12:00:00 AM EDT GABRIELA ([facility]) 211.3 Large Intestine Neoplasm, Benign - Hyper plastic Polyp Large Intestine Neoplasm, Benign - Hyperplastic Polyp Problem 12/02/2019 12:00:00 AM EDT GABRIELA [facility]) 049.9 Unspecified viral encephalitis Unspecified viral encep halitis Problem 12/02/2019 12:00:00 AM EDT G[facility]RIELA [facility]) 287.5 Thrombocytopenia Thrombocytopenia Problem 12/02/2019 12 :00:00 AM EDT GABRIELA ([facility]) 327.23 Organic Sleep Apnea Obstructive Adult Or ganic Sleep Apnea Obstructive Adult Problem 12/02/2019 12:00:00 AM EDT GABRIELA ([facility]) 780.39 Nonepileptic Seizures Nonepileptic Seizures Finding 12/02/2019 12:00:00 AM EDT GABRIELA ([facility]) [id number] Large prostate (finding) Prostate Enlargement Finding 12/02/2019 12:00:00 AM EDT GABRIELA ([facility]) 211.3 Large Intestine Neoplasm, Benign - Hyper plastic Polyp Large Intestine Neoplasm, Benign - Hyperplastic Polyp Problem 12/02/2019 12:00:00 AM EDT GABRIELA ([facility]) 049.9 Unspecified viral encephalitis Unspecified viral encep halitis Problem 12/02/2019 12:00:00 AM EDT GABRIELA ([facility]) 287.5 Thrombocytopenia Thrombocytopenia Problem 12/02/2019 12 :00:00 AM EDT GABRIELA ([facility]) 327.23 Organic Sleep Apnea Obstructive Adult Or ganic Sleep Apnea Obstructive Adult Problem 12/02/2019 12:00:00 AM EDT GABRIELA ([facility]) 780.39 Nonepileptic Seizures Nonepileptic Seizures Finding 12/02/2019 12:00:00 AM EDT G[place]RIELA ([facility]) [id number] Large prostate (finding) Prostate Enlargement Finding 12/02/2019 12:00:00 AM EDT GABRIELA ([facility]) 46376921 Large Intestine Neoplasm, Benign - Hyper plastic Polyp Large Intestine Neoplasm, Benign - Hyperplastic Polyp Problem 12/02/2019 12:00:00 AM EDT GABRIELA ([facility]) 049.9 Unspecified viral encephalitis Unspecified viral encep halitis Problem 12/02/2019 12:00:00 AM EDT G[place]RIELA ([facility]) 287.5 Thrombocytopenia Thrombocytopenia Problem 12/02/2019 12 :00:00 AM EDT GABRIELA ([facility]) 327.23 Organic Sleep Apnea Obstructive Adult Or ganic Sleep Apnea Obstructive Adult Problem 12/02/2019 12:00:00 AM EDT GABRIELA ([facility]) 780.39 Nonepileptic Seizures Nonepileptic Seizures Finding 12/02/2019 12:00:00 AM EDT [facility]) [id number] Large prostate (finding) Prostate Enlargement Finding 12/02/2019 12:00:00 AM EDT [facility]) [id number] Large Intestine Neoplasm, Benign - Hyper plastic Polyp Large Intestine Neoplasm, Benign - Hyperplastic Polyp Problem 12/02/2019 12:00:00 AM EDT [facility]) R799 Abnormal finding of blood chemistry, uns pecified Abnormal finding of blood chemistry, unspecified Diagnosis 07/15/2020 08:42:00 AM [facility] K8021 Calculus of gallbladder without cholecys titis with obstruction Calculus of gallbladder without cholecystitis with obstruction Diagnosis 08:11:00 AM EDT [facility] D696 Thrombocytopenia, unspecified Thrombocytopenia, unspec ified Diagnosis 06/30/2020 08:11:00 AM EDT [facility] K219 Gastro-esophageal reflux disease without esophagitis Gastro-esophageal reflux disease without esophagitis Diagnosis 04/21/2020 08:37:00 AM ED [facility] E782 Mixed hyperlipidemia Mixed hyperlipidemia Diagnosis 04/21/2020 08:37:00 AM EDT [facility] Z52895 Arthralgia of right temporomandibular rob int Arthralgia of right temporomandibular joint Diagnosis 08/26/2019 09:44:00 AM [facility] R591 Generalized enlarged lymph nodes Generalized enl arged lymph nodes Diagnosis 08/16/2019 02:52:00 PM [facility] Surgeries/Procedures Procedure Description Date Indications Data Source(s) ELECTROENCEPHALOGRAM W/REC AWAKE&ASLEEP 04/11/2020 12: 00:00 AM EDT [facility] ([facility], ) ELECTROENCEPHALOGRAM W/REC AWAKE&ASLEEP 04/11/2020 12: 00:00 AM EDT [facility] ([facility], ) MRI BRAIN BRAIN STEM W/O CONTRAST MATERIAL 03/24/2020 12:00:00 AM EDT [facility] ([facility], ) MRI BRAIN BRAIN STEM W/O CONTRAST MATERIAL 03/24/2020 12:00:00 AM EDT [facility] ([facility]) FECAL BLOOD ASSAY TEST (waived laboratory) FECAL BLOOD ASSAY TEST (waived laboratory) 12/02/2019 12:00:00 AM EDT [place] ([facility]) ELECTROCARDIOGRAM, COMPLETE (EKG) ELECTROCARDIOGRAM, COMPLET E (EKG) 12/02/2019 12:00:00 AM EDT [facility] ([facility]) no chronic illnesses ~no surgeries. ~ ~H AD COLONOSCOPY IN 2010 D/T FAMILY HX. " NORMAL" ~HSV ENCEPHALITIS 2006, HOSP X 1 WEEK ~HAD SZ X 1 ~EEG THEN "NORMAL" ~ALLERGY: CHANTIX (RASH) no chronic illnesses ~no surgeries. ~ ~H AD COLONOSCOPY IN 2010 D/T FAMILY HX. " NORMAL" ~HSV ENCEPHALITIS 2006, HOSP X 1 WEEK ~HAD SZ X 1 ~EEG THEN "NORMAL" ~ALLERGY: CHANTIX (RASH) 12/02/2019 12:00:00 AM EDT [facility]) FECAL BLOOD ASSAY TEST FECAL BLOOD ASSAY TEST 12/02/2019 12:00:00 A M EDT [place] ([facility]) ELECTROCARDIOGRAM, COMPLETE (EKG) ELECTROCARDIOGRAM, COMPLET E (EKG) 12/02/2019 12:00:00 AM EDT [place] ([facility]) O2 SATURATION> 88% /LUCINDA>55 O2 SATURATION> 88% /LUCINDA>55 2018 12:00:00 AM [facility] ([facility]) Tympanometry & reflex threshold measurements Tympanome try & reflex threshold measurements 08/16/2019 12:00:00 AM [facility]) Results ID Date Data Source [id number] 10/04/2020 09:45:00 AM EST [facility] Name Value Range Interpretation Code Description Data Marcy rce(s) Supporting Document(s) SARS coronavirus 2 RNA Not Detected [facility] This lab was ordered by [facility] and reported by [facility]. ID Date Data Source [id number] 07/15/2020 09:58:00 AM [facility] Name Value Range Interpretation Code Description Data Marcy rce(s) Supporting Document(s) Protein [Mass/volume] in Serum or Plasma 7.5 G/DL 6.3 - 8.2 [facility] Albumin [Mass/volume] in Serum or Plasma 4.4 G/DL 3.9 - 5.0 [facility] Globulin [Mass/volume] in Serum by calculation 3.1 GM/DL 2.4 - 3.2 [facility] Bilirubin.total [Mass/volume] in Serum or Plasma 0.8 MG/DL 0.2 - 1.3 [facility] Bilirubin.direct [Mass/volume] in Serum or Plasma <0.2 MG/DL 0.1 - 0. 4 [facility] Bilirubin.indirect [Mass/volume] in Serum or Plasma 0.7 MG/DL 0.2 - 1.1 [facility] Aspartate aminotransferase [Enzymatic activity/volume] in Serum or Plasma 24 U/L 5 - 40 [facility] Alanine aminotransferase [Enzymatic activity/volume] in Seru m or Plasma 28 U/L 7 - 56 [facility] Alkaline phosphatase [Enzymatic activity/volume] in Serum or Plasma 81 U/L 38 - 126 [facility] ID Date Data Source [id number] 06/30/2020 09:11:00 AM EDT [facility] Name Value Range Interpretation Code Description Data Marcy rce(s) Supporting Document(s) Lipase [Enzymatic activity/volume] in Serum or Plasma 53 U/L 13 - 60 [facility] ID Date Data Source [id number] 06/30/2020 09:11:00 AM EDT [facility] Name Value Range Interpretation Code Description Data Marcy rce(s) Supporting Document(s) Amylase [Enzymatic activity/volume] in Serum or Plasma 49 U/L 30 - 110 [facility] ID Date Data Source [id number] 06/30/2020 09:11:00 AM EDT [facility] Name Value Range Interpretation Code Description Data Marcy rce(s) Supporting Document(s) COMPREHENSIVE METABOLIC PANEL [facility] COMPREHENSIVE METABOLIC PANEL Sodium [Moles/volume] in Serum or Plasma 140 mEq/L 134 - 153 [facility] Potassium [Moles/volume] in Serum or Plasma 4.1 mEq/L 3.6 - 5.0 [facility] Chloride [Moles/volume] in Serum or Plasma 103 mEq/L 98 - 107 [facility] Carbon dioxide, total [Moles/volume] in Serum or Plasma 30 MEQ/L 22 - 30 [facility] Glucose [Mass/volume] in Serum or Plasma 92 MG/DL 65 - 110 [facility] BUN 11 MG/DL 7 - 21 [facility] Creatinine [Mass/volume] in Serum or Plasma 1.1 MG/DL 0.7 - 1.5 [facility] BUN/CREAT 10 8 - 27 [facility] Protein [Mass/volume] in Serum or Plasma 7.7 G/DL 6.3 - 8.2 [facility] Albumin [Mass/volume] in Serum or Plasma 4.4 G/DL 3.9 - 5.0 [facility] Globulin [Mass/volume] in Serum by calculation 3.3 GM/DL 2.4 - 3.2 H [facility] A/G RATIO 1.3 0.8 - 2.0 [facility] Calcium [Mass/volume] in Serum or Plasma 9.3 MG/DL 8.4 - 10.2 [facility] Bilirubin.total [Mass/volume] in Serum or Plasma <0.7 MG/DL 0.2 - 1.3 [facility] Alkaline phosphatase [Enzymatic activity/volume] in Serum or Plasma 101 U/L 38 - 126 [facility] Aspartate aminotransferase [Enzymatic activity/volume] in Serum or Plasma 35 U/L 5 - 40 [facility] Alanine aminotransferase [Enzymatic activity/volume] in Seru m or Plasma 116 U/L 7 - 56 H [facility] Anion gap 3 in Serum or Plasma 7.0 mmol/L 8.0 - 16.0 L [facility] AGE 54 yrs [facility] al NON-AA GFR >60 mL/min [facility] ital AFR AMER GFR >60 mL/min [facility] Male GFR In terprentation 20-49 yrs >60 mL/min Normal 50-59 yrs >56 mL/min Normal 60-69 yrs >49 mL/min Normal 70-79yrs >42 mL/min Normal 80 and above >35 mL/min Normal Female GFR Interpretation 20-39 yrs >60 mL/min Normal 40-49 yrs >58 mL/min Normal 50-59 yrs >51 mL/min Normal 60-69 yrs >45 mL/min Normal 70-79 yrs >39 mL/min Normal 80 and above >32 mL/min Normal ID Date Data Source [id number] 06/30/2020 08:21:00 AM EDT [facility] Name Value Range Interpretation Code Description Data Marcy rce(s) Supporting Document(s) CBC NO DIFF [facility] ital COMPLETE BLOOD COUNT Leukocytes [#/volume] in Blood by Automated count 4.6 10^3/uL 4.2 - 1 1.0 [facility] Erythrocytes [#/volume] in Blood by Automated count 4.52 10^6/uL 4. 50 - 6.30 [facility] Hemoglobin [Mass/volume] in Blood 14.3 g/dL 14.0 - 16.0 [facility] Hematocrit [Volume Fraction] of Blood by Automated count 41.5 % 4 1.0 - 51.0 [facility] Erythrocyte mean corpuscular volume [Entitic volume] by Auto mated count 91.8 fL 80.0 - 94.0 [facility] Erythrocyte mean corpuscular hemoglobin [Entitic mass] by Automated count 31.6 pg 27.0 - 34.0 [facility] Erythrocyte mean corpuscular hemoglobin concentration [Mass/volume] by Automated count 34.5 g/dL 31.0 - 36.0 [facility] Erythrocyte distribution width [Ratio] by Automated count 12.2 % 11.5 - 14.8 [facility] Platelets [#/volume] in Blood by Automated count 144 10^3/uL 150 - 45 0 L [facility] Platelet mean volume [Entitic volume] in Blood by Automated count 10.0 fL 7.4 - 10.4 [facility] ID Date Data Source [id number] 04/21/2020 08:41:00 AM EDT GABRIELA ([facility]) Name Value Range Interpretation Code Description Data Marcy rce(s) Supporting Document(s) Reported Physicians See Note Reported Physici ans GABRIELA ([facility]) Note: Reported Physicians:Ordering: Noman Valentine AAttending: ROB LYNNCELYNConsulting: ROB LYNNCELYNCopy To: Noman Lynn ID Date Data Source [id number] 04/21/2020 08:41:00 AM EDT [place] ([facility]) Name Value Range Interpretation Code Description Data Marcy rce(s) Supporting Document(s) AFR AMER GFR >60 mL/min AFR AMER GFR [place] ([facility]) Note: Male GFR Interprentation 20- 49 yrs >60 mL/min Normal 50-59 yrs >56 mL/min Normal 60-69 yrs >49 mL/min Normal 70- 79yrs >42 mL/min Normal 80 and above >35 mL/min Normal Female GFR Interpretation 20-39 yrs >60 mL/min Normal 40-49 yrs >58 mL/min Normal 50-59 yrs >51 mL/min Normal 60-69 yrs >45 mL/min Normal 70-79 yrs >39 mL/min Normal 80 and above >32 mL/min NormalResponsible Observer: (TAD) A/G RATIO 1.4 A/G RATIO [place] ([place] [facility]) Note: Responsible Observer: (TAD) Albumin [Mass/volume] in Blood by Bromocresol purple ( BCP) dye binding method 4.5 G/DL ALBUMIN [place] ([facility]) Note: Responsible Observer: (TAD) Egg donor age 54 yrs AGE CARTHAGE ([facility]) Note: Responsible Observer: (TAD) ALKALINE PHOS 75 U/L ALKALINE PHOS [place] ([facility]) Note: Responsible Observer: (TAD) Anion gap in Body fluid 7.0 mmol/L Below low normal ANION GAP [place] ([facility]) Note: Responsible Observer: (TAD) Calcium [Moles/volume] in Urine collected for unspecified durati on 9.2 MG/DL CALCIUM [place] ([facility]) Note: Responsible Observer: (TAD) BUN 11 MG/DL BUN [place] ([facility]) Note: Responsible Observer: (TAD) BUN/CREAT 11 BUN/CREAT [place] ([facility]) Note: Responsible Observer: (TAD) Chloride [Moles/volume] in Serum, Plasma or Blood 102 mEq/L CHLORIDE [place] ([facility]) Note: Responsible Observer: (TAD) CO2 28 MEQ/L CO2 [place] ([facility]) Note: Responsible Observer: (TAD) Globulin [Mass/time] in 24 hour Urine 3.2 GM/DL GLOBULIN [place] ([facility]) Note: Responsible Observer: (TAD) Creatinine [Moles/volume] in Vitreous fluid 1.0 MG/DL CREATININE [place] ([facility]) Note: Responsible Observer: (TAD) COMPREHENSIVE METABOLIC PANEL See Note COMPRE HENSIVE METABOLIC PANEL [place] ([facility]) Note: COMPREHENSIVE METABOLIC PANELR esponsible Observer: (TAD) Potassium [Mass/volume] in Blood 4.3 mEq/L POT ASSIUM [place] ([facility]) Note: Responsible Observer: (TAD) Glucose [Mass/volume] in Urine collected for unspecified duration 9 7 MG/DL GLUCOSE [place] ([facility]) Note: Responsible Observer: (TAD) NON-AA GFR >60 mL/min NON-AA GFR [place] ([facility]) Note: Responsible Observer: (TAD) SGPT/ALT 25 U/L SGPT/ALT [place] ([facility]) Note: Responsible Observer: (TAD) Sodium [Moles/volume] in Serum, Plasma or Blood 137 mEq/L SODIUM [place] ([facility]) Note: Responsible Observer: (TAD) SGOT/AST 23 U/L SGOT/AST [place] ([facility]) Note: Responsible Observer: (TAD) TOTAL PROTEIN 7.7 G/DL TOTAL PROTEIN [place] ([facility]) Note: Responsible Observer: (TAD) TOTAL BILI <0.7 MG/DL TOTAL BILI [place] ([facility]) Note: Responsible Observer: (TAD) ID Date Data Source [id number] 04/21/2020 08:41:00 AM EDT [place] ([facility]) Name Value Range Interpretation Code Description Data Marcy rce(s) Supporting Document(s) Reported Physicians See Note Reported Physici ans [place] ([facility]) Note: Reported Physicians:Ordering: Noman Valentine AAttending: NOMAN LYNNConsulting: Luca LYNN To: Noman Lynn ID Date Data Source [id number] 04/21/2020 08:41:00 AM EDT [place] ([facility]) Name Value Range Interpretation Code Description Data Marcy rce(s) Supporting Document(s) Cholesterol [Moles/volume] in Pericardial fluid 164 MG/DL CHOLESTEROL [place] ([facility]) Note: Responsible Observer: (TAD) CVE PANEL See Note CVE PANEL [place] ([facility]) Note: LIPID PANELResponsible Observe r: (TAD) HDL 38 MG/DL HDL [place] ([facility]) Note: Responsible Observer: (TAD) Cholesterol in LDL [Mass/volume] in Serum or Plasma by Direct as say 119 mg/dL LDL [place] ([facility]) Note: Responsible Observer: (TAD) LDL/HDL 3.13 LDL/HDL [place] ([facility]) Note: CVE RISK CHOL/HD L LDL/HDLMEN: 1/2 AVERAGE 3.43 1.00 AVERAGE 4.97 3.55 2X AVERAGE 9.55 6.25 3X AVERAGE 23.99 7.99WOMEN: 1/2 AVERAGE 3.27 1.47 AVERAGE 4.44 3.22 2X AVERAGE 7.05 5.03 3X AVERAGE 11.04 6.14Responsible Observer: (TAD) TRIGLYCERIDES 91 MG/DL TRIGLYCERIDES [place] ([facility]) Note: Responsible Observer: (TAD) RISK FACTOR 4.3 RISK FACTOR [place] ([facility]) Note: Responsible Observer: (TAD) ID Date Data Source [id number] 04/21/2020 08:41:00 AM EDT [place] ([facility]) Name Value Range Interpretation Code Description Data Marcy rce(s) Supporting Document(s) Reported Physicians See Note Reported Physici ans [place] ([facility]) Note: Reported Physicians:Ordering: Noman Valentine AAttending: NOMAN LYNNConsulting: Luca LYNN To: Noman Lynn ID Date Data Source [id number] 04/21/2020 08:41:00 AM EDT [place] ([facility]) Name Value Range Interpretation Code Description Data Marcy rce(s) Supporting Document(s) TSH 1.18 uIU/mL TSH [place] ([facility]) Note: Responsible Observer: (ENDY) ID Date Data Source [id number] 04/21/2020 08:41:00 AM EDT GABRIELA ([facility]) Name Value Range Interpretation Code Description Data Marcy rce(s) Supporting Document(s) Reported Physicians See Note Reported Physici ans [place] ([facility]) Note: Reported Physicians:Ordering: Ferreira e, Noman AAttending: SHANE, JOCELYNConsulting: SHANE, JOCELYNCopy To: Shane, Noman ID Date Data Source [id number] 04/21/2020 08:41:00 AM EDT [place] ([facility]) Name Value Range Interpretation Code Description Data Marcy rce(s) Supporting Document(s) Magnesium [Mass/volume] in Urine collected for unspecified durat ion 2.1 MG/DL MAGNESIUM [place] ([facility]) Note: Responsible Observer: (ENDY) ID Date Data Source [id number] 04/21/2020 08:41:00 AM EDT [place] ([facility]) Name Value Range Interpretation Code Description Data Marcy rce(s) Supporting Document(s) Reported Physicians See Note Reported Physic ans [place] ([facility]) Note: Reported Physicians:Ordering: Ferreira e, Noman AAttending: SHANE, JOCELYNConsulting: SHANE, JOCELYNCopy To: Shane, Noman ID Date Data Source [id number] 04/21/2020 08:41:00 AM EDT [place] ([facility]) Name Value Range Interpretation Code Description Data Marcy rce(s) Supporting Document(s) CBC NO DIFF See Note CBC NO DIFF [place] ([facility]) Note: COMPLETE BLOOD COUNTResponsibl e Observer: (TAD) Hematocrit [Pure volume fraction] of Blood by Automated count 42.8 % HEMATOCRIT [place] ([facility]) Note: Responsible Observer: (TAD) Hemoglobin [Mass/volume] in Mixed venous blood by Oximetry 14.9 g/d L HEMOGLOBIN [place] ([facility]) Note: Responsible Observer: (TAD) MCH 31.8 pg MCH [place] ([facility]) Note: Responsible Observer: (TAD) MCHC 34.8 g/dL MCHC [place] ([facility]) Note: Responsible Observer: (TAD) MCV 91.3 fL MCV [place] ([facility]) Note: Responsible Observer: (TAD) MPV 10.3 fL MPV [place] ([facility]) Note: Responsible Observer: (TAD) Platelets [#/area] in Blood by Microscopy high power field 124 1 0\\^3/uL Below low normal PLATELETS [place] ([facility]) Note: Responsible Observer: (TAD) RBC 4.69 10\\^6/uL RBC [place] ([facility]) Note: Responsible Observer: (TAD) WBC 5.3 10\\^3/uL WBC [place] ([facility]) Note: Responsible Observer: (TAD) RDW 12.2 % RDW [place] ([facility]) Note: Responsible Observer: (TAD) ID Date Data Source [id number] 04/21/2020 10:49:00 AM EDT [facility] Name Value Range Interpretation Code Description Data Marcy rce(s) Supporting Document(s) CBC NO DIFF [facility] COMPLETE BLOOD COUNT Leukocytes [#/volume] in Blood by Automated count 5.3 10^3/uL 4.2 - 1 1.0 [facility] Erythrocytes [#/volume] in Blood by Automated count 4.69 10^6/uL 4. 50 - 6.30 [facility] Hemoglobin [Mass/volume] in Blood 14.9 g/dL 14.0 - 16.0 [facility] Hematocrit [Volume Fraction] of Blood by Automated count 42.8 % 4 1.0 - 51.0 [facility] Erythrocyte mean corpuscular volume [Entitic volume] by Auto mated count 91.3 fL 80.0 - 94.0 [facility] Erythrocyte mean corpuscular hemoglobin [Entitic mass] by Automated count 31.8 pg 27.0 - 34.0 [facility] Erythrocyte mean corpuscular hemoglobin concentration [Mass/volume] by Automated count 34.8 g/dL 31.0 - 36.0 [facility] Erythrocyte distribution width [Ratio] by Automated count 12.2 % 11.5 - 14.8 [facility] Platelets [#/volume] in Blood by Automated count 124 10^3/uL 150 - 45 0 L [facility] Platelet mean volume [Entitic volume] in Blood by Automated count 10.3 fL 7.4 - 10.4 [facility] ID Date Data Source [id number] 04/21/2020 10:18:00 AM EDT [facility] Name Value Range Interpretation Code Description Data Marcy rce(s) Supporting Document(s) Thyrotropin [Units/volume] in Serum or Plasma by Detec tion limit <= 0.05 mIU/L 1.18 uIU/mL 0.47 - 5.01 [facility] ID Date Data Source [id number] 04/21/2020 09:48:00 AM EDT [facility] Name Value Range Interpretation Code Description Data Marcy rce(s) Supporting Document(s) COMPREHENSIVE METABOLIC PANEL [facility] COMPREHENSIVE METABOLIC PANEL Sodium [Moles/volume] in Serum or Plasma 137 mEq/L 134 - 153 [facility] Potassium [Moles/volume] in Serum or Plasma 4.3 mEq/L 3.6 - 5.0 [facility] Chloride [Moles/volume] in Serum or Plasma 102 mEq/L 98 - 107 [facility] Carbon dioxide, total [Moles/volume] in Serum or Plasma 28 MEQ/L 22 - 30 [facility] Glucose [Mass/volume] in Serum or Plasma 97 MG/DL 65 - 110 [facility] BUN 11 [facility] Creatinine [Mass/volume] in Serum or Plasma 1.0 MG/DL 0.7 - 1.5 [facility] BUN/CREAT 11 8 - 27 [facility] Protein [Mass/volume] in Serum or Plasma 7.7 G/DL 6.3 - 8.2 [facility] Albumin [Mass/volume] in Serum or Plasma 4.5 G/DL 3.9 - 5.0 [facility] Globulin [Mass/volume] in Serum by calculation 3.2 GM/DL 2.4 - 3.2 [facility] A/G RATIO 1.4 0.8 - 2.0 [facility] Calcium [Mass/volume] in Serum or Plasma 9.2 MG/DL 8.4 - 10.2 [facility] Bilirubin.total [Mass/volume] in Serum or Plasma <0.7 MG/DL 0.2 - 1.3 [facility] Alkaline phosphatase [Enzymatic activity/volume] in Serum or Plasma 75 U/L 38 - 126 [facility] Aspartate aminotransferase [Enzymatic activity/volume] in Serum or Plasma 23 U/L 5 - 40 [facility] Alanine aminotransferase [Enzymatic activity/volume] in Seru m or Plasma 25 U/L 7 - 56 [facility] Anion gap 3 in Serum or Plasma 7.0 mmol/L 8.0 - 16.0 L [facility] AGE 54 yrs [facility] al NON-AA GFR >60 mL/min [facility] ital AFR AMER GFR >60 mL/min [facility] Male GFR In terprentation 20-49 yrs >60 mL/min Normal 50-59 yrs >56 mL/min Normal 60-69 yrs >49 mL/min Normal 70-79yrs >42 mL/min Normal 80 and above >35 mL/min Normal Female GFR Interpretation 20-39 yrs >60 mL/min Normal 40-49 yrs >58 mL/min Normal 50-59 yrs >51 mL/min Normal 60-69 yrs >45 mL/min Normal 70-79 yrs >39 mL/min Normal 80 and above >32 mL/min Normal ID Date Data Source [id number] 04/21/2020 09:48:00 AM EDT [facility] Name Value Range Interpretation Code Description Data Marcy rce(s) Supporting Document(s) Magnesium [Mass/volume] in Serum or Plasma 2.1 MG/DL 1.7 - 2.2 [facility] ID Date Data Source [id number] 04/21/2020 09:48:00 AM EDT [facility] Name Value Range Interpretation Code Description Data Marcy rce(s) Supporting Document(s) CVE PANEL [facility] LIPID PANEL Cholesterol [Mass/volume] in Serum or Plasma 164 MG/DL 131 - 200 [facility] Deprecated Triglyceride [Mass/volume] in Serum or Plasma 91 MG/DL 3 5 - 160 [facility] HDL 38 MG/DL 29 - 86 [facility] Cholesterol in LDL [Mass/volume] in Serum or Plasma by Direc t assay 119 mg/dL 65 - 175 [facility] Cholesterol.total/Cholesterol in HDL [Mass Ratio] in Serum o r Plasma 4.3 3.4 - 4.9 [facility] LDL/HDL 3.13 1.00 - 3.55 [facility] CVE RISK CHOL/HDL LDL/HDLMEN: 1/2 AVERAGE 3.43 1.00 AVERAGE 4.97 3.55 2X AVERAGE 9.55 6.25 3X AVERAGE 23.99 7.99WOMEN: 1/2 AVERAGE 3.27 1.47 AVERAGE 4.44 3.22 2X AVERAGE 7.05 5.03 3X AVERAGE 11.04 6.14 ID Date Data Source [id number] 08/29/2019 10:57:00 AM EST [facility] [address] [place] [address] PHONE: [phone] FAX: [phone] Name .................. : CHICHO Lacey Acct Number.................. : [id number] ROOM. ................. : Number ................... : [id number] Stay type ............. : O/P Discharge Date......... ... : 08/26/19 Admit Date ....... .. : 08/26/19 Admit Phys .................... : SHANE DIA Date of ....... : 1965 Family Phys ................... : SHANE DIA Phone .................. : [phone] Age ................................ : 53 Film# .................. .:[id number] Sex ................................. : M Unsigned transcriptions are preliminary reports and do not represent a medical or legal document TMJ BILAT [id number] COMPLETE:08/26/19 10:24 NAVYA [id number] (REASON FOR PROCEDURE JOINT DISORDER R BILATERAL TMJ SERIES: INDICATION: Right TMJ disorder. FINDINGS: Examination reveals normal alignment and position of the left TMJ with appropriate movement with open mouth positioning. On the right, there is asymmetry of the joint space in the closed mouth position and incomplete movement of the mandible on open mouth positioning. Underlying degenerative changes are suspected. An MRI could be performed if further evaluation is necessary. IMPRESSION: Suspected abnormality of the right TMJ. MRI could be performed if further evaluation is necessary. Examination dictated by GYPSY Coello. Examination was reviewed with Leonidas Darling MD, radiologist at the time of this dictation. Electronically Reviewed and Signed By Leonidas Darling M.D. , 08/29/19 10:57, [place] Transcribe Initials: JAMA , Transcribe Date: 08/26/19 16:52, Dictation Date: Copy for: SHANE TINEO via fax Copy for: [address] [place] [address] REC Page 1 of 1 Name Value Range Interpretation Code Description Data Marcy rce(s) Supporting Document(s) ID Date Data Source [id number] 08/16/2019 03:09:00 PM EST GABRIELA ([facility]) Name Value Range Interpretation Code Description Data Marcy rce(s) Supporting Document(s) Reported Physicians See Note Reported Physici ans GABRIELA ([facility]) Note: Reported Physicians:Ordering: Noman Valentine AAttending: SHANE, JOCELYNConsulting: SHANE, JOCELYNCopy To: Shane (Aznar-Shane), Noman ID Date Data Source [id number] 08/16/2019 03:09:00 PM EST [place] ([facility]) Name Value Range Interpretation Code Description Data Marcy rce(s) Supporting Document(s) SED RATE REENTER 1 SED RATE REENTER [facility] ([facility]) Note: Responsible Observer: (NH) SED RATE 1 mm/hr SED RATE [place] ([facility]) Note: Responsible Observer: (NH) ID Date Data Source [id number] 08/16/2019 03:09:00 PM [facility] ([facility]) Name Value Range Interpretation Code Description Data Marcy rce(s) Supporting Document(s) Reported Physicians See Note Reported Physici ans [place] ([facility]) Note: Reported Physicians:Ordering: Ferreira e, Noman AAttending: SHANE, JOCELYNConsulting: SHANE, JOCELYNCopy To: Shane (Aznar-Shane), Noman ID Date Data Source [id number] 08/16/2019 03:09:00 PM [facility] ([facility]) Name Value Range Interpretation Code Description Data Marcy rce(s) Supporting Document(s) CRP-HS 5.09 MG/L Above high normal CRP-HS [facility] ([facility]) Note: CDC/S HS-CRP CUT-OFF : RELATIVE RISK: <1.0 mg/L Low 1.0 - 3.0 mg/L Average >3.0 mg/L High Optimally, the average of HS-CRP results repeated two weeks apart should be used for risk assessment.Responsible Observer: (GBT) ID Date Data Source [id number] 08/16/2019 03:09:00 PM EST [place] ([facility]) Name Value Range Interpretation Code Description Data Marcy rce(s) Supporting Document(s) Reported Physicians See Note Reported Physici ans [place] ([facility]) Note: Reported Physicians:Ordering: Ferreira e, Noman AAttending: SHANE, JOCELYNConsulting: SHANE, JOCELYNCopy To: Shane (AznarDeloresShaneNoman Ledesma ID Date Data Source [id number] 08/16/2019 03:09:00 PM EST [place] ([facility]) Name Value Range Interpretation Code Description Data Marcy rce(s) Supporting Document(s) CBC NO DIFF See Note CBC NO DIFF [place] ([facility]) Note: COMPLETE BLOOD COUNTResponsibl e Observer: (NH) MCH 31.5 pg MCH [place] ([facility]) Note: Responsible Observer: (NH) Hematocrit [Pure volume fraction] of Blood by Automated count 43.0 % HEMATOCRIT [place] ([facility]) Note: Responsible Observer: (NH) Hemoglobin [Mass/volume] in Mixed venous blood by Oximetry 14.7 g/d L HEMOGLOBIN [place] ([facility]) Note: Responsible Observer: (NH) MPV 10.0 fL MPV [place] ([facility]) Note: Responsible Observer: (NH) MCV 92.1 fL MCV [place] ([facility]) Note: Responsible Observer: (NH) MCHC 34.2 g/dL MCHC [place] ([facility]) Note: Responsible Observer: (NH) RBC 4.67 10\\^6/uL RBC [place] ([facility]) Note: Responsible Observer: (NH) Platelets [#/area] in Blood by Microscopy high power field 143 1 0\\^3/uL Below low normal PLATELETS [place] ([facility]) Note: Responsible Observer: (NH) WBC 6.1 10\\^3/uL WBC [place] ([facility]) Note: Responsible Observer: (NH) RDW 12.0 % RDW [place] ([facility]) Note: Responsible Observer: (NH) ID Date Data Source [id number] 08/16/2019 09:30:00 PM [facility] Name Value Range Interpretation Code Description Data Marcy rce(s) Supporting Document(s) C reactive protein [Mass/volume] in Serum or Plasma by High sensitivity method 5.09 MG/L 1.00 - 3.00 H [facility] CDC/AHS HS-CRP CUT-OFF: RELATIVE RISK: <1.0 mg/L Low 1.0 - 3.0 mg/L Average >3.0 mg/L High Optimally, the average of HS-CRP results repeated two weeks apart should be used for risk assessment. ID Date Data Source [id number] 08/16/2019 04:32:00 PM EST [facility] Name Value Range Interpretation Code Description Data Marcy rce(s) Supporting Document(s) Erythrocyte sedimentation rate by Westergren method 1 mm/hr 0 - 20 [facility] SED RATE REENTER 1 [facility] ID Date Data Source [id number] 08/16/2019 03:32:00 PM EST [facility] Name Value Range Interpretation Code Description Data Marcy rce(s) Supporting Document(s) CBC NO DIFF [facility] COMPLETE BLOOD COUNT Leukocytes [#/volume] in Blood by Automated count 6.1 10^3/uL 4.2 - 1 1.0 [facility] Erythrocytes [#/volume] in Blood by Automated count 4.67 10^6/uL 4. 50 - 6.30 [facility] Hemoglobin [Mass/volume] in Blood 14.7 g/dL 14.0 - 16.0 [facility] Hematocrit [Volume Fraction] of Blood by Automated count 43.0 % 4 1.0 - 51.0 [facility] Erythrocyte mean corpuscular volume [Entitic volume] by Auto mated count 92.1 fL 80.0 - 94.0 [facility] Erythrocyte mean corpuscular hemoglobin [Entitic mass] by Automated count 31.5 pg 27.0 - 34.0 [facility] Erythrocyte mean corpuscular hemoglobin concentration [Mass/volume] by Automated count 34.2 g/dL 31.0 - 36.0 [facility] Erythrocyte distribution width [Ratio] by Automated count 12.0 % 11.5 - 14.8 [facility] Platelets [#/volume] in Blood by Automated count 143 10^3/uL 150 - 45 0 L [facility] Platelet mean volume [Entitic volume] in Blood by Automated count 10.0 fL 7.4 - 10.4 [facility] Procedure Vital Signs ID Date Data Source [id number] Name Value Range Interpretation Code Description Data Source(s) Body weight 116.575 kg 116.575 kg [facility] ([facility]) [place] body weight 172 [lb_av] 172 [lb_av] [facility] ([facility]) Body mass index (BMI) [Ratio] 35.8 kg/m2 35.8 k g/m2 [facility] Body weight 257.00 [lb_av] 257.00 [lb_av] [facility] ([facility]) Body height 71 [in_i] 71 [in_i] [facility] ([facility]) 5'11" Diastolic blood pressure 80 mm[Hg] 80 mm[Hg] [facility] ([facility]) Systolic blood pressure 160 mm[Hg] 160 mm[Hg] [facility] Body mass index (BMI) [Ratio] 36.6 kg/m2 36.6 k g/m2 [place] ([facility]) Body weight 255 [lb_av] 255 [lb_av] GABRIELA ( [facility]) Body height 70 [in_i] 70 [in_i] [facility] Body temperature 98.1 [degF] 98.1 [degF] [facility] ([facility]) Respiratory rate 24 /min 24 /min G[facility]RIELA ([facility]) Heart rate 82 /min 82 /min [facility] Diastolic blood pressure 68 mm[Hg] 68 mm[Hg] [facility] ([facility]) Systolic blood pressure 122 mm[Hg] 122 mm[Hg] G REENWAY ([facility]) Inhaled oxygen concentration 21 % 21 % GABRIELA ([facility]) Inhaled oxygen flow rate 0 L/min 0 L/min [place] ([facility]) Oxygen saturation in Arterial blood by Pulse oximetry 98 % 98 % [place] ([facility]) Body surface area Derived from formula 2.31 m2 2.31 m2 [place] ([facility]) [place] body weight 172 [lb_av] 172 [lb_av] [facility] ([facility], ) Body mass index (BMI) [Ratio] 35.6 kg/m2 35.6 k g/m2 [facility] ([facility] ) Body weight 255.00 [lb_av] 255.00 [lb_av] [facility] ([facility], ) Body height 71 [in_i] 71 [in_i] [facility] ([facility], ) 5'11" Respiratory rate 12 /min 12 /min [facility] ( [facility] ) Body mass index (BMI) [Ratio] 37.6 kg/m2 37.6 k g/m2 [place] ([facility]) Body weight 262 [lb_av] 262 [lb_av] [place] ([facility]) Body height 70 [in_i] 70 [in_i] [place] ([facility]) Body temperature 96.8 [degF] 96.8 [degF] [facility] ([facility]) Respiratory rate 18 /min 18 /min GABRIELA ([facility]) Heart rate 93 /min 93 /min [facility] ([facility]) Diastolic blood pressure 68 mm[Hg] 68 mm[Hg] [place] ([facility]) Systolic blood pressure 126 mm[Hg] 126 mm[Hg] [facility] ([facility]) Oxygen saturation in Arterial blood by Pulse oximetry 97 % 97 % [place] ([facility]) Body surface area Derived from formula 2.34 m2 2.34 m2 [place] ([facility]) [place] body weight 172 [lb_av] 172 [lb_av] [facility] ([facility], ) Body mass index (BMI) [Ratio] 35.6 kg/m2 35.6 k g/m2 [facility] ([facility], ) Body weight 255.00 [lb_av] 255.00 [lb_av] [facility] ([facility], ) Body height 71 [in_i] 71 [in_i] [facility] [facility] 5'11" Respiratory rate 12 /min 12 /min MEDENT ( [facility], ) Body mass index (BMI) [Ratio] 37.6 kg/m2 37.6 k g/m2 GABRIELA ([facility]) Body weight 262 [lb_av] 262 [lb_av] GABRIELA ([facility]) Body height 70 [in_i] 70 [in_i] CARTHAGE ([facility]) Body surface area Derived from formula 2.34 m2 2.34 m2 CARTHAGE ([facility]) Body mass index (BMI) [Ratio] 37.6 kg/m2 37.6 k g/m2 CARTHAGE ([facility]) Body weight 262 [lb_av] 262 [lb_av] GABRIELA ([facility]) Body height 70 [in_i] 70 [in_i] GABRIELA ([facility]) Body temperature 96.4 [degF] 96.4 [degF] GREENW AY ([facility]) Respiratory rate 16 /min 16 /min CARTHAGE ([facility]) Heart rate 90 /min 90 /min CARTHAGE ([facility]) Diastolic blood pressure 72 mm[Hg] 72 mm[Hg] CARTHAGE ([facility]) Systolic blood pressure 122 mm[Hg] 122 mm[Hg] [facility] ([facility]) Inhaled oxygen concentration 21 % 21 % CARTHAGE ([facility]) Inhaled oxygen flow rate 0 L/min 0 L/min CARTHAGE ([facility]) Oxygen saturation in Arterial blood by Pulse oximetry 96 % 96 % CARTHAGE ([facility]) Body surface area Derived from formula 2.34 m2 2.34 m2 CARTHAGE ([facility]) Body mass index (BMI) [Ratio] 37.4 kg/m2 37.4 k g/m2 CARTHAGE ([facility]) Body weight 261 [lb_av] 261 [lb_av] CARTHAGE ([facility]) Body height 70 [in_i] 70 [in_i] CARTHAGE ([facility]) Body temperature 97.8 [degF] 97.8 [degF] GREENW AY ([facility]) Respiratory rate 24 /min 24 /min CARTHAGE ([facility]) Heart rate 82 /min 82 /min CARTHAGE ([facility]) Diastolic blood pressure 76 mm[Hg] 76 mm[Hg] CARTHAGE ([facility]) Systolic blood pressure 128 mm[Hg] 128 mm[Hg] [facility] ([facility]) Inhaled oxygen concentration 21 % 21 % CARTHAGE ([facility]) Inhaled oxygen flow rate 0 L/min 0 L/min CARTHAGE ([facility]) Oxygen saturation in Arterial blood by Pulse oximetry 98 % 98 % CARTHAGE ([facility]) Body surface area Derived from formula 2.34 m2 2.34 m2 CARTHAGE ([facility]) Body mass index (BMI) [Ratio] 37.6 kg/m2 37.6 k g/m2 CARTHAGE ([facility]) Body weight 262 [lb_av] 262 [lb_av] CARTHAGE ([facility]) Body height 70 [in_i] 70 [in_i] CARTHAGE ([facility]) Respiratory rate 20 /min 20 /min CARTHAGE ([facility]) Heart rate 86 /min 86 /min CARTHAGE ([facility]) Diastolic blood pressure 68 mm[Hg] 68 mm[Hg] CARTHAGE ([facility]) Systolic blood pressure 136 mm[Hg] 136 mm[Hg] [facility] ([facility]) Inhaled oxygen concentration 21 % 21 % CARTHAGE ([facility]) Inhaled oxygen flow rate 0 L/min 0 L/min CARTHAGE ([facility]) Oxygen saturation in Arterial blood by Pulse oximetry 98 % 98 % CARTHAGE ([facility]) Body surface area Derived from formula 2.34 m2 2.34 m2 CARTHAGE ([facility]) Oxygen saturation in Arterial blood by Pulse oximetry 98 % 98 % CARTHAGE ([facility]) Body surface area Derived from formula 2.35 m2 2.35 m2 CARTHAGE ([facility]) Body mass index (BMI) [Ratio] 37.9 kg/m2 37.9 k g/m2 CARTHAGE ([facility]) Body weight 264 [lb_av] 264 [lb_av] GABRIELA ([facility]) Body height 70 [in_i] 70 [in_i] GABRIELA ([facility]) Body temperature 97.8 [degF] 97.8 [degF] [facility] ([facility]) Respiratory rate 24 /min 24 /min GABRIELA ([facility]) Heart rate 80 /min 80 /min GABRIELA ([facility]) Diastolic blood pressure 68 mm[Hg] 68 mm[Hg] GABRIELA ([facility]) Systolic blood pressure 118 mm[Hg] 118 mm[Hg] G [place] ([facility]) Inhaled oxygen concentration 21 % 21 % CARTHAGE ([facility]) Inhaled oxygen flow rate 0 L/min 0 L/min CARTHAGE ([facility]) Patient Treatment Plan of Care Planned Activity Planned Date Details Description Data Source (s) pantoprazole 40 MG Delayed Release Oral Tablet 05/18/2020 12:00:00 AM EDT CARTHAGE ([facility]) pantoprazole 40 MG Delayed Release Oral Tablet 03/02/2020 12:00:00 AM EDT CARTHAGE ([facility]) oxcarbazepine 600 MG Oral Tablet 03/02/2020 12:00:00 AM EDT [facility]) oxcarbazepine 600 MG Oral Tablet 12/02/2019 12:00:00 AM EDT CARTHAGE ([facility]) pantoprazole 40 MG Delayed Release Oral Tablet 11/07/2019 12:00:00 AM [facility]) Amoxicillin 875 MG Oral Tablet 08/17/2019 12:00:00 AM EST [facility]) oxcarbazepine 600 MG Oral Tablet 08/03/2019 12:00:00 AM [facility]) pantoprazole 40 MG Delayed Release Oral Tablet 05/20/2019 12:00:00 AM EDT [facility])
[2020-10-09] MEDS ORDERED: BUPIVACAINE HCL 0.25% 30ML VIAL As Ordered ONE (07:14)
[2020-10-09] MEDS ORDERED: ROCURONIUM BROMIDE 50 MG/5 ML VIAL As Ordered ONE ×2 (07:15→07:51)
[2020-10-09] MEDS ORDERED: ONDANSETRON 4MG/2ML VIAL As Ordered ONE (07:15)
[2020-10-09] MEDS ORDERED: fentaNYL 250 MCG/5 ML INJECTION (J3010) As Ordered ONE (07:15)
[2020-10-09] MEDS ORDERED: dexameTHASONE 4 MG/ML 1ML VIAL (J1100 PER 1MG) As Ordered ONE (07:15)
[2020-10-09] MEDS ORDERED: propofoL 200 MG/20 ML VIAL As Ordered ONE (07:15)
[2020-10-09] MEDS ORDERED: KETOROLAC 60MG 2ML VIAL As Ordered ONE (07:15)
[2020-10-09] MEDS ORDERED: MIDAZOLAM INJ 2MG/2ML VIAL (J2250 PER 1MG) As Ordered ONE (07:15)
[2020-10-09] MEDS ORDERED: ACETAMINOPHEN 1000MG 100ML IV BTL (OFIRMEV) (J0131 PER 10MG) As Ordered ONE (07:15)
[2020-10-09] MEDS ORDERED: LIDOCAINE 2% 100MG/5ML SDV (FOR ANES.) As Ordered ONE (07:15)
[2020-10-09] MEDS ORDERED: HYDR-4571 PO (07:42)
[2020-10-09] MEDS ORDERED: SUGAMMADEX SODIUM 500 MG/5 ML VIAL (BRIDION) As Ordered ONE (07:51)
[2020-10-09] MEDS ORDERED: ePHEDrine SULFATE 25 MG/5 ML(5MG/ML) SYRINGE As Ordered ONE (08:08)
[2020-10-09] MEDS ORDERED: GLYCOPYRROLATE INJ 0.2 MG/ML 2 ML VIAL As Ordered ONE (08:10)
[2020-10-09] MEDS ORDERED: NORCO, ANEXSIA 5/325MG TABLET (HYDROcodone/ACETAMINOPHEN) PO PRN (10:00)
[2020-10-09] MEDS ORDERED: ACETAMINOPHEN TAB 650MG DOSE (2X325MG) PO PRN (10:00)
[2020-10-09] MEDS ORDERED: IBUPROFEN 600MG TAB PO PRN (10:00)
--- NOTE | 2020-10-09 10:08 | RO ---
OPERATIVE NOTE DATE OF OPERATION: 10/09/2020 PREOPERATIVE DIAGNOSIS: Symptomatic gallstones. POSTOPERATIVE DIAGNOSIS: Symptomatic gallstones. PROCEDURE PERFORMED: Laparoscopic cholecystectomy. SURGEON: Landry Neves MD MIXING MACHINE ATTENDANT: ANESTHESIA: General. INDICATIONS FOR THE PROCEDURE: The patient is a 54-year-old man who suffered an episode of severe upper abdominal pain and was found to have cholelithiasis. He is now for laparoscopic cholecystectomy. DESCRIPTION OF PROCEDURE: The patient was brought to the operating room and placed on the table in supine position. He was placed under general endotracheal anesthesia. The patient's abdomen was prepped and draped in sterile fashion. 0.25% Marcaine was infiltrated in each of the trocar sites as needed. A short transverse left upper quadrant incision was made. Veress needle was inserted and after positive hanging drop test the abdomen was insufflated with CO2 gas. A 5 mm port was placed over a 5 mm scope and advanced through the abdominal wall without difficulty. Initial examination showed no evidence of Veress needle or trocar injury. The patient had abundant omental fat covering the region of the gallbladder. The liver appeared normal. There were a few loops of small bowel and large bowel noted in the lower abdomen that appeared normal. Two 5 mm ports were placed in the right upper quadrant and 11 mm port was placed along the midline several centimeters above the umbilicus. The patient was rolled to the left and placed into reverse Trendelenburg position. The omentum was pulled down off the undersurface of the liver and the gallbladder was exposed. The gallbladder was not acutely inflamed. There were a few adhesions identified of the omentum to the body of the gallbladder. The gallbladder was grasped and elevated. It was full and I elected to aspirate bile from the gallbladder using aspiring needle. It was then easier to manipulate the gallbladder and this was grasped and elevated. The adhesions were divided with Hook cautery. Dissection then began at the gallbladder neck area by incising the peritoneum and dissecting through the pericholecystic tissues. With careful dissection the cystic duct was clearly identified arising at the gallbladder neck. The cystic duct was doubly clipped with hemoclips and divided. The remaining attachments at the gallbladder neck were then divided using the Hook cautery. Interestingly no significant arterial branch was identified going to the gallbladder. The gallbladder was then dissected free from the gallbladder bed using dissection with the Hook cautery. The gallbladder was not perforated in the course of dissection. The gallbladder was placed in Endopouch. The right upper quadrant and subhepatic space were then irrigated with saline and this was removed. Inspection showed no evidence of bleeding and no bile leak. The patient was returned to a flat position. The abdomen was deflated and the trocars were removed. The gallbladder was recovered through the supraumbilical site. It was necessary to extend the fascial incision slightly because of the stone burden. Palpation of the gallbladder revealed innumerable small stones about 2-3 mm in diameter. Gallbladder was sent for permanent pathology. The fascia at the supraumbilical site was closed with interrupted simple sutures of 1-0 Vicryl. The skin incisions were all closed with buried 4-0 Vicryl and Steri-Strips. Light dressings were applied. The patient tolerated the procedure well without apparent complication. He was awakened in the operating room, extubated and moved to the recovery room in stable condition.
[2020-10-09 10:20] VITALS: BP 142/77
--- NOTE | 2020-10-09 15:54 | ECGEPIP ---
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 No prior ECG available for comparison at the time of interpretation. Electronically Signed on 10-09-2020 15:53:48 EST by Lazaro King
== END 2020-10-09 11:08 | disposition home or self-care (01) ==
LOC: M SDC 06:13
PROVIDERS: ATTEND Surgery
DX: K80.10 Calculus of gallbladder with chronic cholecystitis without obstruction (principal); K21.9 Gastro-esophageal reflux disease without esophagitis; Z87.891 Personal history of nicotine dependence; G47.30 Sleep apnea, unspecified; Z79.899 Other long term (current) drug therapy
CPT/HCPCS: 47562; 88304; 93005; J0131; J1100; J1885; J2250; J2405; J3010